=== PATIENT | female | born 1985 | race Caucasian/White ===

== ENCOUNTER 2020-10-13 14:34 | Emergency (ER) | payer MEDICAID, SELFPAY ==
[2020-10-13 14:38] VITALS: BP 132/73; PULSE 108; RESP 16; TEMP 37; O2SAT 93; O2SAT 94; BMI 27.3
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
[2020-10-13] MEDS: Ibuprofen 600 MG Tablet PO (16:20)
[2020-10-13 16:26] VITALS: BP 129/86; PULSE 102; RESP 16
== END 2020-10-13 16:27 | disposition home or self-care (01) ==
PROVIDERS: Emergency Provider Emergency Medicine
DX: S09.90XA Unspecified injury of head, initial encounter (principal); S80.12XA Contusion of left lower leg, initial encounter; V43.52XA Car driver injured in collision with other type car in traffic accident, initial encounter; Y92.410 Unspecified street and highway as the place of occurrence of the external cause; F17.210 Nicotine dependence, cigarettes, uncomplicated; F32.9 Major depressive disorder, single episode, unspecified; F41.9 Anxiety disorder, unspecified; Z79.899 Other long term (current) drug therapy
CPT/HCPCS: 70450; 73590; 99284